=== PATIENT | female | born 1995 | race Caucasian/White ===

== ENCOUNTER 2018-04-13 22:13 | Observation (INO) | payer OTHER ==
--- NOTE | 2018-04-13 22:36 | EDPHY ---
H & P Stated Complaint: RLQ abd pain started yesterday with diarrhea Time Seen by Provider: 04/13/18 22:25 HPI/ROS: Chief Complaint: Abdominal pain HPI: 22-year-old woman presenting with right lower quadrant abdominal pain. Patient states she has began having some generalized abdominal pain last night. She woke up in the middle the night last night with pain in her right lower abdomen when she moved. Over the course today the pain is been progressing. She has had some nausea but no vomiting. Has had 1 loose mucousy stool. Pain is worse when she moves, walks, or goes over bumps in the car. Right now is about a 5/10. She is also notice that hurts when she presses on the right side of her abdomen. Last menstrual. Was the 18th of last month. No abnormal vaginal discharge or bleeding. No urinary urgency or frequency. She has been anorexic and only ate a single small piece of banana bread at 5:00 a.m. This evening. She has had about half a glass of water since that time. ROS: 10 systems were reviewed and were negative except those elements noted in the HPI. PMH: Factor 5 Leiden, not on medications Social History: No smoking, no alcohol, no recreational drug use Family History: non-contributory Physical Exam: Gen: Awake, Alert, No Distress HEENT: Nose: no rhinorrhea Eyes: PERRLA, EOMI Mouth: Moist mucosa Neck: Supple, no JVD Chest: nontender, lungs clear to auscultation Heart: S1, S2 normal, no murmur Abd: Soft, patient has right lower quadrant tenderness, no adnexal tenderness, positive Rovsing sign Back: no CVA tenderness, no midline tenderness Ext: no edema, non-tender Skin: no rash Neuro: CN II-XII intact, Sensation grossly intact, Strength 5/5 in bilateral upper and lower extremities - Personal History LMP (Females 10-55): 15-21 Days Ago Current Tetanus/Diphtheria Vaccine: Yes Current Tetanus Diphtheria and Acellular Pertussis (TDAP): Yes - Medical/Surgical History Hx Asthma: No Hx Chronic Respiratory Disease: No Hx Diabetes: No Hx Cardiac Disease: No Hx Renal Disease: No Hx Cirrhosis: No Hx Alcoholism: No Hx HIV/AIDS: No Hx Splenectomy or Spleen Trauma: No Other PMH: factor 5, tonsillectomy and addnoidectomy - Social History Smoking Status: Never smoked Constitutional: Initial Vital Signs Temperature (C) 37.0 C 04/13/18 22:15 Heart Rate 77 04/13/18 22:15 Respiratory Rate 16 04/13/18 22:15 Blood Pressure 138/82 H 04/13/18 22:15 O2 Sat (%) 97 04/13/18 22:15 O2 Delivery Mode Room Air Allergies/Adverse Reactions: cephalexin Allergy (Verified 04/13/18 22:18) Home Medications: Medication Instructions Recorded Prozac 10 MG (*) 04/13/18 Medical Decision Making - Diagnostics Imaging Results: Imaging Impressions Abdomen Ultrasound 04/13/18 22:33 Impression: 1. Small amount of right lower quadrant free fluid and edematous 1 cm thick loop of bowel, which is uncertain for terminal ileum or appendix. 2. Consider additional CT imaging if clinically indicated. Findings and recommendations discussed with Emergency Department physician, Santos Lamas MD at 23:30 hour, 04/13/2018. Final report concurs with initial preliminary interpretation. Abdomen CT 04/13/18 23:37 Impression: 1. Acute appendicitis with thickening of the appendix up to 12 mm and periappendiceal fluid. 2. No drainable abscess, bowel obstruction or pneumoperitoneum. Findings and recommendations discussed with Emergency Department physician, Santos Lamas MD at 23:58 hour, 04/13/2018. Final report concurs with initial preliminary interpretation. Imaging: Discussed imaging studies w/ house calls nurse practitioner Radiologist ED Course/Re-evaluation: Right lower quadrant ultrasound equivocal for acute appendicitis. Patient does not have a leukocytosis. She continues to have tenderness there and a very good history. Will proceed with CT scan. CT scan is positive for acute appendicitis. Patient is allergic to cephalosporins. Dr. Yuan is requesting Invanz which I have ordered. He will plan on taking the patient to the operating room is patient's pain is controlled , does not require any analgesia at this time. Last ate at 5:00 p.m.. Has had only some sips of water since that time. - Data Points Laboratory Results: Laboratory Results 04/13/18 22:40 04/13/18 22:40 04/13/18 04/13/18 04/13/18 22:40 22:40 22:40 WBC 8.26 10^3/uL 10^3/uL (3.80-9.50) RBC 4.96 10^6/uL 10^6/uL (4.18-5.33) Hgb 14.7 g/dL g/dL (12.6-16.3) Hct 43.6 % % (38.0-47.0) MCV 87.9 fL fL (81.5-99.8) MCH 29.6 pg pg (27.9-34.1) MCHC 33.7 g/dL g/dL (32.4-36.7) RDW 12.4 % % (11.5-15.2) Plt Count 391 10^3/uL 10^3/uL (150-400) MPV 8.7 fL fL (8.7-11.7) Neut % (Auto) 54.5 % % (39.3-74.2) Lymph % (Auto) 32.6 % % (15.0-45.0) [place] % (Auto) 11.3 % % (4.5-13.0) Eos % (Auto) 0.6 % % (0.6-7.6) Baso % (Auto) 0.8 % % (0.3-1.7) Nucleat RBC Rel Count 0.0 % % (0.0-0.2) Absolute Neuts (auto) 4.50 10^3/uL 10^3/uL (1.70-6.50) Absolute Lymphs (auto) 2.69 10^3/uL 10^3/uL (1.00-3.00) Absolute Monos (auto) 0.93 10^3/uL H 10^3/uL (0.30-0.80) Absolute Eos (auto) 0.05 10^3/uL 10^3/uL (0.03-0.40) Absolute Basos (auto) 0.07 10^3/uL 10^3/uL (0.02-0.10) Absolute Nucleated RBC 0.00 10^3/uL 10^3/uL (0-0.01) Immature Gran % 0.2 % % (0.0-1.1) Immature Gran # 0.02 10^3/uL 10^3/uL (0.00-0.10) Sodium 136 mEq/L mEq/L (135-145) Potassium 4.4 mEq/L mEq/L (3.3-5.0) Chloride 102 mEq/L mEq/L (97-110) Carbon Dioxide 24 mEq/l mEq/l (22-31) Anion Gap 10 mEq/L mEq/L (6-14) BUN 10 mg/dL mg/dL (7-23) Creatinine 0.6 mg/dL mg/dL (0.6-1.0) Estimated GFR > 60 Glucose 93 mg/dL mg/dL (70-100) Calcium 10.2 mg/dL mg/dL (8.5-10.4) Beta HCG, Qual NEGATIVE Medications Given: Discontinued Medications Sodium Chloride (Ns) 1,000 mls @ 0 mls/hr IV ONCE ONE; Wide Open PRN Reason: Protocol Stop: 04/13/18 22:35 Last Admin: 04/13/18 22:42 Dose: 1,000 mls Departure - Departure Disposition: [facility] Inpatient Acute Clinical Impression: Acute appendicitis Condition: Fair Referrals: NONE *PRIMARY CARE P,. [Primary Care Provider] - As per Instructions
[2018-04-13] MEDS: NS 1,000 ML IV ONE ×2 (22:41→22:42)
[2018-04-13 22:53] LABS: PLATELET COUNT 391 10^3/uL (150-400)
[2018-04-13] MEDS ORDERED: IOPAMIDOL (ISOVUE-300) 100 ML BTL ONE (23:40)
[2018-04-14] MEDS ORDERED: ERTAPENEM 1 GM in NS 100 ML IV ONE (00:06)
[2018-04-14] MEDS ORDERED: BUPIVACAINE 0.25% 30 ML SDV ONE (00:34)
[2018-04-14] MEDS ORDERED: ONDANSETRON 4 MG/2 ML VIAL IVP ONE (00:57)
[2018-04-14] MEDS ORDERED: HYDROmorphONE/DILAUDID 1 MG/ML INJ IVP PRN (00:57)
--- NOTE | 2018-04-14 00:57 | POSTANESTH ---
Post Anesthetic Evaluation Cardiovascular Status: Normal, Stable Respiratory Status: Normal, Stable Level of Consciousness/Mental Status: Can Participate in Eval, Mildly Sleepy, Arousable Pain Control: Adequate, Prn Tx Ordered Nausea/Vomiting Control: Adequate, Prn Tx Ordered Complications Possibly Related to Anesthesia: None Noted
[2018-04-14] MEDS ORDERED: LR 1,000 ML IV SCH ×2 (01:00→02:30)
--- NOTE | 2018-04-14 01:00 | PDANEPAE ---
ANE History of Present Illness 22 yo female with acute appendicitis for lap appy. ANE Past Medical History - Cardiovascular History Hx Hypertension: No Hx Arrhythmias: No Hx Chest Pain: No Hx Coronary Artery / Peripheral Vascular Disease: No Hx CHF / Valvular Disease: No Hx Palpitations: No - Pulmonary History Hx COPD: No Hx Asthma/Reactive Airway Disease: No Hx Recent Upper Respiratory Infection: No Hx Oxygen in Use at Home: No Hx Sleep Apnea: No - Endocrine History Hx Diabetes: No Hypothyroid: No Hyperthyroid: No Obesity: no - Renal History Hx Renal Disorders: No - Liver History Hx Hepatic Disorders: No - Neurological & Psychiatric Hx Hx Neurological and Psychiatric Disorders: Yes Neurological / Psychiatric History Comment: depression - Other Health History Other Health History: factor V Leiden mutation - Surgical History Prior Surgeries: L wrist surgery ANE Review of Systems Review of Systems: - Systems Cardiac: Reports: no symptoms Respiratory: Reports: no symptoms Gastrointestinal: Reports: abdominal pain ANE Patient History - Allergies Allergies/Adverse Reactions: cephalexin Allergy (Verified 04/13/18 22:18) - Home Medications Home Medications: Prozac 10 MG (*) 04/13/18 [Last Taken Unknown] - NPO status NPO Since - Liquids (Date): 04/13/18 NPO Since - Liquids (Time): 17:30 NPO Since - Solids (Date): 04/13/18 NPO Since - Solids (Time): 17:30 - Anes Hx Anes Hx: no prior problems - Smoking Hx Smoking Status: Never smoked Marijuana use: No - Alcohol Use Alcohol Use: Rarely (3-4/month) - Family Anes Hx Family Anes Hx: neg - N/A ANE Labs/Vital Signs - Labs Result Diagrams: 04/13/18 22:40 04/13/18 22:40 - Vital Signs Blood Pressure: 120/78 Heart Rate: 78 Respiratory Rate: 18 O2 Sat (%): 99 Height: 175.26 cm Weight: 70.307 kg ANE Physical Exam - Airway Neck exam: FROM Mallampati Score: Class 1 Mouth exam: normal dental/mouth exam - Pulmonary Pulmonary: clear to auscultation - Cardiovascular Cardiovascular: regular rate and rhythym - ASA Status ASA Status: II, E ANE Anesthesia Plan Anesthesia Plan: general endotracheal anesthesia
[2018-04-14] MEDS ORDERED: DEXAMETHASONE 4 MG/ML VIAL ONE (01:09)
[2018-04-14] MEDS ORDERED: LIDOCAINE 2% 2 ML INJ ONE (01:09)
[2018-04-14] MEDS ORDERED: PROPOFOL/EMULSION 500 MG/50 ML BOTTLE IV ONE (01:09)
[2018-04-14] MEDS ORDERED: fentaNYL 100 MCG/2 ML INJ ONE ×2 (01:09→01:38)
[2018-04-14] MEDS ORDERED: ROCURONIUM 50 MG/5 ML VIAL ONE (01:09)
--- NOTE | 2018-04-14 01:19 | PDGENHP ---
History and Physical - Chief Complaint abd pain - History of Present Illness 19 y/o female with one day hx abd pain localizing to the RLQ associated with nausea, anorexia and one episode of diarrhea. History Information - Allergies/Home Medication List Allergies/Adverse Reactions: cephalexin Allergy (Verified 04/13/18 22:18) Home Medications: Prozac 10 MG (*) 04/13/18 [Last Taken Unknown] I have personally reviewed and updated: family history, medical history, social history, surgical history - Past Medical History Additional medical history: heterozygous for factor V Leiden - Surgical History Additional surgical history: tonsilectomy with return to OR for bleeding - Family History Additional family history: Mother with factore V Leiden/hx DVT + PE - Social History Smoking Status: Never smoked Alcohol Use: Rarely (3-4/month) Drug Use: None Additional social history: here with boyfriend Aris Review of Systems Review of Systems: Constitutional: Reports: no symptoms Cardiac: Reports: no symptoms Respiratory: Reports: no symptoms Gastrointestinal: Reports: abdominal pain, diarrhea, nausea Genitourinary: Reports: no symptoms Muscolosketal: Reports: no symptoms Physical Exam Physical Exam: Temp Pulse Resp BP Pulse Ox 36.9 C 78 18 120/78 99 04/14/18 00:56 04/14/18 01:07 04/14/18 01:07 04/14/18 01:07 04/14/18 01:07 Constitutional: no apparent distress Eyes: anicteric sclera Ears, Nose, Mouth, Throat: moist mucous membranes Cardiovascular: regular rate and rhythym Respiratory: no respiratory distress, no rales or rhonchi, clear to auscultation Gastrointestinal: tenderness (RLQ w/out guarding, + Rovsing's), other ( umbilical piercing) Skin: warm Neurologic: AAOx3 Psychiatric: interacting appropriately, not anxious Lab Data & Imaging Review 04/13/18 22:40 04/13/18 22:40 WBC 8.26 10^3/uL (3.80-9.50) 04/13/18 22:40 RBC 4.96 10^6/uL (4.18-5.33) 04/13/18 22:40 Hgb 14.7 g/dL (12.6-16.3) 04/13/18 22:40 Hct 43.6 % (38.0-47.0) 04/13/18 22:40 MCV 87.9 fL (81.5-99.8) 04/13/18 22:40 MCH 29.6 pg (27.9-34.1) 04/13/18 22:40 MCHC 33.7 g/dL (32.4-36.7) 04/13/18 22:40 RDW 12.4 % (11.5-15.2) 04/13/18 22:40 Plt Count 391 10^3/uL (150-400) 04/13/18 22:40 MPV 8.7 fL (8.7-11.7) 04/13/18 22:40 Neut % (Auto) 54.5 % (39.3-74.2) 04/13/18 22:40 Lymph % (Auto) 32.6 % (15.0-45.0) 04/13/18 22:40 [place] % (Auto) 11.3 % (4.5-13.0) 04/13/18 22:40 Eos % (Auto) 0.6 % (0.6-7.6) 04/13/18 22:40 Baso % (Auto) 0.8 % (0.3-1.7) 04/13/18 22:40 Nucleat RBC Rel Count 0.0 % (0.0-0.2) 04/13/18 22:40 Absolute Neuts (auto) 4.50 10^3/uL (1.70-6.50) 04/13/18 22:40 Absolute Lymphs (auto) 2.69 10^3/uL (1.00-3.00) 04/13/18 22:40 Absolute Monos (auto) 0.93 10^3/uL (0.30-0.80) H 04/13/18 22:40 Absolute Eos (auto) 0.05 10^3/uL (0.03-0.40) 04/13/18 22:40 Absolute Basos (auto) 0.07 10^3/uL (0.02-0.10) 04/13/18 22:40 Absolute Nucleated RBC 0.00 10^3/uL (0-0.01) 04/13/18 22:40 Immature Gran % 0.2 % (0.0-1.1) 04/13/18 22:40 Immature Gran # 0.02 10^3/uL (0.00-0.10) 04/13/18 22:40 Sodium 136 mEq/L (135-145) 04/13/18 22:40 Potassium 4.4 mEq/L (3.3-5.0) 04/13/18 22:40 Chloride 102 mEq/L (97-110) 04/13/18 22:40 Carbon Dioxide 24 mEq/l (22-31) 04/13/18 22:40 Anion Gap 10 mEq/L (6-14) 04/13/18 22:40 BUN 10 mg/dL (7-23) 04/13/18 22:40 Creatinine 0.6 mg/dL (0.6-1.0) 04/13/18 22:40 Estimated GFR > 60 04/13/18 22:40 Glucose 93 mg/dL (70-100) 04/13/18 22:40 Calcium 10.2 mg/dL (8.5-10.4) 04/13/18 22:40 Beta HCG, Qual NEGATIVE 04/13/18 22:40 Visualized and Interpreted imaging results: Yes Interpretation: CT shows dilated appendix without appendicolith Assessment & Plan Assessment: Acute appendicitis (Acute) heterozygous for factor V Leiden Plan: I recommended lap appendectomy. We discussed the surgery, expected recovery and alternative of antibiotics alone as treatment. She has consented to surgery. I recommended a short course of anticoagulation following surgery and will discuss with Hematology in the morning. SCDs intra-op Aguilar Yuan MD, FACS
[2018-04-14] MEDS ORDERED: KETOROLAC 30 MG/1 ML SDV ONE (01:26)
[2018-04-14] MEDS ORDERED: ONDANSETRON 4 MG/2 ML VIAL ONE (01:26)
[2018-04-14] MEDS ORDERED: ACETAMINOPHEN 500 MG TAB PO PRN (01:49)
[2018-04-14] MEDS ORDERED: LR 500 ML IV PRN (01:49)
[2018-04-14] MEDS ORDERED: HYDROCODONE/APAP 5/325 TAB PO PRN ×2 (01:49→02:15)
[2018-04-14] MEDS ORDERED: NALOXONE HCL 0.4 MG/ML INJ IVP PRN (01:49)
[2018-04-14] MEDS ORDERED: fentaNYL 100 MCG/2 ML INJ IVP PRN (01:49)
[2018-04-14] MEDS ORDERED: PROMETHAZINE HCL 25 MG/ML INJ IVP PRN (01:49)
[2018-04-14] MEDS ORDERED: SUGAMMADEX SODIUM 200 MG/2 ML VIAL IVP ONE (01:50)
[2018-04-14] MEDS ORDERED: ONDANSETRON 4 MG/2 ML VIAL IVP PRN (02:15)
--- NOTE | 2018-04-14 02:23 | POSTOPPROG ---
Post Op Note Date of Operation: 04/14/18 Surgeon: Rylan Yuan (, FACS) Anesthesiologist: Kaylee Garcias DO Anesthesia: GET(General Endotracheal) Pre-op Diagnosis: appendicitis Post-op Diagnosis: same Procedure: lap appendectomy Findings: acute appendicitis without perforation or gangrene Inf/Abcess present in the surg proc area at time of surgery?: Yes Depth: Organ Space EBL: Minimal (5ml) Specimen(s): appendix #[id number] Melida Yuan MD, FACS
[2018-04-14] MEDS ORDERED: ENOXAPARIN 40 MG/0.4 ML SYR SC SCH (02:30)
[2018-04-14] MEDS ORDERED: IBUPROFEN 600 MG TAB PO SCH (06:00)
--- NOTE | 2018-04-14 07:04 | GOP ---
DATE OF OPERATION: 04/14/2018 SURGEON: Rylan Yuan MD, FACS ANESTHESIA: General endotracheal. ANESTHESIOLOGIST: Kaylee Hall MD. PREOPERATIVE DIAGNOSIS: Acute appendicitis. POSTOPERATIVE DIAGNOSIS: Acute appendicitis. PROCEDURE PERFORMED: Laparoscopic appendectomy. FINDINGS: Acute appendicitis without perforation or gangrene. ESTIMATED BLOOD LOSS: 5 mL. DESCRIPTION OF PROCEDURE: After informed consent was obtained, the patient was brought to the operating room and placed under general anesthesia. The abdomen was prepped and draped in the usual fashion. Before proceeding, a time-out and identification of the patient was performed. 0.25% Marcaine was used to infiltrate all incision sites. A longitudinal incision was made through the base of the umbilicus and carried through skin and subcutaneous tissues. Ventral traction was applied to the abdominal wall as a Veress needle was introduced into the peritoneal cavity. Position was confirmed by saline infusion. A pneumoperitoneum was established with CO2 gas to a pressure of 15 mmHg. The Veress needle was withdrawn and replaced with a 5 mm bladeless trocar. A 0-degree scope was introduced, and the peritoneal cavity was visualized. Additional 5 mm port was placed in the suprapubic position, and a 12 mm port in the left lower quadrant, both under direct visualization. This allowed introduction of atraumatic grasping forceps, and the appendix was identified lateral to the cecum and adherent to the abdominal sidewall. The peritoneum was incised, and the appendix was liberated from its attachments using the Harmonic Scalpel. The mesoappendix was dissected and divided with the Harmonic Scalpel, and the appendix from the cecum with a single firing of the KATY stapler. After it was detached, it was placed into an Endopouch and retrieved through the left lower quadrant port site. The operative field appeared hemostatic. The left lower quadrant port site was closed with a transfascial closure needle and 0 Vicryl suture. The pneumoperitoneum was evacuated. The remaining ports were removed. The subcutaneous tissues were approximated with 3-0 Monocryl suture. Skin was closed with 4-0 Monocryl suture in a subcuticular fashion. Dermabond was applied. The patient was extubated and brought to the recovery room in satisfactory condition. Needle, sponge, and instrument count were correct. COMPLICATIONS: None. /[id number]/MODL MTDD
[2018-04-14] MEDS ORDERED: APIXABAN 2.5 MG TAB PO SCH (09:00)
[2018-04-14] MEDS ORDERED: SENNOSIDES/DOCUSATE SODIUM TAB PO SCH (09:00)
[2018-04-14 10:31] VITALS: BP 103/66
== END 2018-04-14 11:47 | disposition home or self-care (01) ==
LOC: FOB 04-14 02:45
PROVIDERS: ADMIT Surgery; ATTEND Surgery
PROC: 0DTJ4ZZ Resection of Appendix, Percutaneous Endoscopic Approach (ICD-10-PCS; principal; 2018-04-14 01:00)
DX: K35.80 Unspecified acute appendicitis (principal)
CPT/HCPCS: 44970; 74177; 76705; 96360; 99285; G0378; J1100; J1335; J1650; J1885; J2405; J2704; J3010; Q9967

== ENCOUNTER 2018-04-22 21:40 | Emergency (ER) | payer OTHER ==
--- NOTE | 2018-04-22 22:14 | EDPHY ---
H & P Stated Complaint: appy on week ago stop blood thinner yesterday now have right lung pain - Personal History LMP (Females 10-55): Now Current Tetanus/Diphtheria Vaccine: Yes Current Tetanus Diphtheria and Acellular Pertussis (TDAP): Yes - Medical/Surgical History Hx Asthma: No Hx Chronic Respiratory Disease: No Hx Diabetes: No Hx Cardiac Disease: No Hx Renal Disease: No Hx Cirrhosis: No Hx Alcoholism: No Hx HIV/AIDS: No Hx Splenectomy or Spleen Trauma: No Other PMH: factor 5, tonsillectomy and addnoidectomy, appy - Social History Smoking Status: Never smoked Time Seen by Provider: 04/22/18 22:01 Constitutional: Initial Vital Signs Temperature (C) 37.1 C 04/22/18 21:41 Heart Rate 77 04/22/18 21:41 Respiratory Rate 16 04/22/18 21:41 Blood Pressure 130/80 H 04/22/18 21:41 O2 Sat (%) 100 04/22/18 21:41 O2 Delivery Mode Room Air Allergies/Adverse Reactions: cephalexin Allergy (Verified 04/22/18 21:43) Home Medications: Medication Instructions Recorded FLUoxetine 04/22/18 Medical Decision Making - Diagnostics Imaging: Discussed imaging studies w/ wood caulker Radiologist, I viewed and interpreted images myself - Diagnostics Imaging Results: Imaging Impressions Chest/Thorax CTA 04/22/18 22:01 Impression: Negative CT examination of the chest for acute pulmonary thromboembolic disease. Results called to Dr. Santos Lamas at the time of the interpretation. ED Course/Re-evaluation: CHIEF COMPLAINT: Pleuritic chest pain HISTORY OF PRESENT ILLNESS: The patient is a 22 y/o female with a known Factor V Leiden Deficiency without prior clot history who arrives with her boyfriend complaining of right "lung pain" onset this evening. She had an appendectomy one week ago and finished her course of anticoagulants yesterday. Today about 4- 5 hours ago she developed "stabbing pain in my right lung when I breathe." The pain is worse with movement as well. She denies any obvious precipitating event like trauma. She denies chance of . She is generally healthy. REVIEW OF SYSTEMS: A 10 point review of systems was performed and is negative with the exception of the elements mentioned in the history of present illness. PHYSICAL EXAM: HR, BP, O2 Sat, RR. Temp noted General Appearance: Alert, well hydrated, appropriate, and non-toxic appearing. Head: Atraumatic without scalp tenderness or obvious injury Eyes: Pupils equal, round, reactive to light and accommodation, EOMI, no trauma , no injection. Nose: Atraumatic, no rhinorrhea, clear. Throat: Mucus membranes moist. Neck: Supple, non-tender, no lymphadenopathy. Respiratory: No retractions, no distress, no wheezes, and no accessory muscle use. Lungs are clear to auscultation bilaterally. Cardiovascular: Regular rate and rhythm, no murmurs, rubs, or gallops. Good capillary refill all extremities. Gastrointestinal: Abdomen is soft, non-tender, non-distended, no masses, no rebound, no guarding, no peritoneal signs. Musculoskeletal: Normal active ROM of all extremities, atraumatic. Neurological: Alert, appropriate, and interactive. The patient has non-focal cranial nerves, motor, sensory, and cerebellar exam. Skin: No rashes, good turgor, no nodules on palpation. PAST MEDICAL HISTORY: Factor V Leiden Deficiency - no prior clots PAST SURGICAL HISTORY: Appendectomy FAMILY HISTORY: Mother has had 2 PEs. SOCIAL HISTORY: Boyfriend at bedside. Lives in [place]. [employer] student. DIAGNOSTICS/PROCEDURES/CRITICAL CARE TIME: The 12 lead EKG was interpreted by myself. Sinus mechanism. See hard copy and/ or "tracemaster" electronic copy for interpretation. Chest CTA: pending at shift change DIFFERENTIAL DIAGNOSIS: The differential diagnosis for the patient's chest pain included but was not limited to myocardial ischemia, pulmonary embolus, chest wall pain, pleural inflammation, and pulmonary infectious causes. MEDICAL DECISION MAKING: This is a normally healthy 22 y/o female with a history of Factor V Leiden Deficiency who is 1 week out from an appendectomy and presents with a few-hour history of right-sided pleuritic chest pain. Exam is unremarkable. She is not hypoxemic nor tachycardic. Due to known Factor V deficiency and recent surgery, she has a higher pre-test probability for clot and I recommended preceding directly with chest CTA after ISTAT. Patient care signed out to Dr. Lamas at shift change pending CTA results. ( Maury Craig) Other Provider: 22:[address] Craig pending results of the CT scan of the chest. 23:10 CT angiogram of the chest is negative for PE or other abnormality. Patient has been reassured. She will be discharged with follow up with primary care physician. Return for any concerns. (Santos Lamas) - Data Points Laboratory Results: 04/22/18 22:20 POC Hgb 14.3 gm/dL gm/dL (12.6-16.3) POC Hct 42 % % (38-47) POC Sodium 140 mEq/L mEq/L (135-145) POC Potassium 3.8 mEq/L mEq/L (3.3-5.0) POC Chloride 104 mEq/L mEq/L (97-110) POC BUN 8 mg/dL mg/dL (7-23) POC Creatinine 0.7 mg/dL mg/dL (0.6-1.0) POC Glucose 90 mg/dL mg/dL (70-100) Point of Care Test Results: Chemistry 04/22/18 22:20 POC Sodium 140 mEq/L mEq/L (135-145) POC Potassium 3.8 mEq/L mEq/L (3.3-5.0) POC Chloride 104 mEq/L mEq/L (97-110) POC BUN 8 mg/dL mg/dL (7-23) POC Creatinine 0.7 mg/dL mg/dL (0.6-1.0) POC Glucose 90 mg/dL mg/dL (70-100) ISTAT H&H 04/22/18 22:20 POC Hgb 14.3 gm/dL gm/dL (12.6-16.3) POC Hct 42 % % (38-47) Departure - Departure Disposition: Home, Routine, Self-Care Clinical Impression: Pleuritic chest pain Condition: Good Instructions: Pleurisy (ED) Additional Instructions: Follow up with count includes the [facility] for any concerns. Return to the emergency department for worsening chest pain, cough, fevers, chills, or any other concerns. Referrals: [facility],. [Clinic] - As per Instructions Report Scribed for: Maury Craig Report Scribed by: Елена Salcedo Date of Report: 04/22/18 Time of Report: 22:37
[2018-04-22] MEDS ORDERED: IOPAMIDOL (ISOVUE 370) 100 ML BTL IV ONE (22:24)
[2018-04-22 23:33] VITALS: BP 124/73
--- NOTE | 2018-04-23 09:23 | CPEKG ---
Test Reason : OPEN Blood Pressure : / mmHG Vent. Rate : 084 BPM Atrial Rate : 086 BPM P-R Int : 164 ms QRS Dur : 095 ms QT Int : 385 ms P-R-T Axes : 067 063 043 degrees QTc Int : 456 ms Sinus rhythm Confirmed by Sean Swain ([id number]) on 04/23/2018 9:23:22 AM Referred By: Confirmed By:Sean Swain
== END 2018-04-22 23:32 | disposition home or self-care (01) ==
DX: R07.81 Pleurodynia (principal); D68.2 Hereditary deficiency of other clotting factors
CPT/HCPCS: 82435-PO; 82565-PO; 82947-PO; 84132-PO; 84295-PO; 84520-PO; 85014-PO; Q9967